=== PATIENT | male | born 1955 | race Caucasian/White ===

== ENCOUNTER 2017-03-23 09:55 | Emergency (ER) | payer MEDICAID, OTHER ==
[~2017-03-23] VITALS: Ht 154.9 cm; Wt 68.0 kg
[2017-03-23 09:56] VITALS: Ht 154.9 cm; Wt 68.0 kg
[2017-03-23 13:53] VITALS: BP 142/82; PULSE 78; RESP 18; TEMP 98.3
--- NOTE | 2017-03-23 14:07 | ERD ---
ER Documentation Chief Complaint Date/Time DATE: 03/23/17 TIME: 14:05 Chief Complaint ETOH homeless HPI This 61-year-old female presents with being found wandering the streets intoxicated. Is homeless and admits to drinking alcohol last night but denies drinking any alcohol today. He states that he does feel still drunk from last night. He denies any pain and does not think he needs to be in the emergency room currently. States that he has not had any recent trauma. ROS All systems reviewed and are negative except as per history of present illness. Medications Home Meds No Active Prescriptions or Reported Meds Allergies Allergies: Coded Allergies: Penicillins (Verified Allergy, Mild, 09/27/16) PMhx/Soc History of Surgery: Yes (testicular hernia repair) Anesthesia Reaction: No Hx Neurological Disorder: No Hx Respiratory Disorders: No Hx Cardiac Disorders: No Hx Psychiatric Problems: Yes (HX DEPRESSION, ETOH ABUSE) Hx Miscellaneous Medical Probl: Yes (chronic back pain, alcohol abuse, prostatitis dx'd 2 yrs ago- no f/u) Hx Alcohol Use: Yes (once per week) Hx Substance Use: No (DENIES) Hx Tobacco Use: No (DENIES) Smoking Status: Former smoker Physical Exam Vitals Vital Signs Date Time Temp Pulse Resp B/P Pulse Ox O2 Delivery O2 Flow Rate FiO2 03/23/17 13:53 98.3 78 18 142/82 98 03/23/17 12:35 98.1 81 18 146/84 98 03/23/17 09:56 98.1 114 20 152/88 98 Physical Exam Const: [] No distress, does appear intoxicated Head: Atraumatic Eyes: Normal Conjunctiva, EOMI, PRL ENT: Normal External Ears, Nose and Mouth. Neck: Full range of motion..~ No meningismus. Resp: Clear to auscultation bilaterally Cardio: Regular rate and rhythm, no murmurs Abd: Soft, non tender, non distended. Normal bowel sounds Skin: No petechiae or rashes Back: No midline or flank tenderness Ext: No cyanosis, or edema Neur: Awake and alert and oriented 3, mild slurred speech, cranial nerves II through XII intact, no cerebellar deficits. Psych: Normal Mood and Affect Procedures/MDM Intoxicated 61-year-old male. He was observed in the emergency room for 3-1/2 hours. Was able to eat and take p.o. After 3 hours a reexamined him he was clinically sober. Still had no pain or any signs of trauma. Going to discharge him with primary care follow-up. Spoke to him about alcohol cessation at the bedside for greater than 3 minutes. Departure Diagnosis: Primary Impression: Alcoholic intoxication Condition: Stable Patient Instructions: Alcohol Intoxication Referrals: [facility] YOU HAVE RECEIVED A MEDICAL SCREENING EXAM AND THE RESULTS INDICATE THAT YOU DO NOT HAVE A CONDITION THAT REQUIRES URGENT TREATMENT IN THE EMERGENCY DEPARTMENT. FURTHER EVALUATION AND TREATMENT OF YOUR CONDITION CAN WAIT UNTIL YOU ARE SEEN IN YOUR DOCTORS OFFICE WITHIN THE NEXT 1-2 DAYS. IT IS YOUR RESPONSIBILITY TO MAKE AN APPOINTMENT FOR FOLOW-UP CARE. IF YOU HAVE A PRIMARY DOCTOR --you should call your primary doctor and schedule an appointment IF YOU DO NOT HAVE A PRIMARY DOCTOR YOU CAN CALL OUR PHYSICIAN REFERRAL HOTLINE AT IF YOU CAN NOT AFFORD TO SEE A PHYSICIAN YOU CAN CHOSE FROM THE FOLLOWING [facility]IATRIC HOSPITAL CLINICS [facility] [address] [facility]. [facility] [address] [address] [facility] [facility] [address] [facility]. [facility] [address] [facility]. [facility]. [address] Additional Instructions: Llame al doctor MAANA y alverto brock CHIOMA PARA DENTRO DE 2-3 JEAN.Dgale a la secretaria que nosotros le instruimos hacer esta chioma.Avise o llame si lopez condicin se empeora antes de la chioma. Regresa aqui si peor o no mejor. NEGRA CHAMBERLAIN DO Mar 23, 2017 14:07
== END 2017-03-23 13:35 | disposition home or self-care (01) ==
LOC: E/R 09:55
DX: F10.120 Alcohol abuse with intoxication, uncomplicated (principal); Z87.891 Personal history of nicotine dependence
CPT/HCPCS: 99282

== ENCOUNTER 2017-04-06 10:41 | Emergency (ER) | payer OTHER ==
[~2017-04-06] VITALS: Ht 157.5 cm; Wt 59.5 kg
[2017-04-06 10:43] VITALS: Ht 157.5 cm; Wt 59.5 kg
--- NOTE | 2017-04-06 12:19 | RADRPT ---
PROCEDURE: Chest Radiograph. CLINICAL INDICATION: Chest pain TECHNIQUE: Single frontal chest radiograph. COMPARISON: None available FINDINGS: The cardiomediastinal silhouette is within normal limits. No infiltrate or effusion is seen. Th e bones are intact. IMPRESSION: 1. Unremarkable chest radiograph. RPTAT: AA .Joaquin Frank MD, MD Date Time Electronically viewed and signed by .Joaquin Frank MD, on 04/06/2017 12:19 .B/
[2017-04-06 12:37] LABS: ADD SCAN DIFF NO
[2017-04-06 12:38] LABS: BASOPHIL # 0.1 10^3/ul (0.0-0.1); BASOPHILS % 1.4 % (0.0-2.0); EOSINOPHILS # 0.1 10^3/ul (0.0-0.5); EOSINOPHILS % 0.9 % (0.0-7.0); HEMATOCRIT 30.3 % (42.0-52.0); HEMOGLOBIN 9.9 g/dl (14.0-18.0); LYMPHOCYTES # 2.1 10^3/ul (0.8-2.9); LYMPHOCYTES % 23.5 % (15.0-51.0); MEAN CORPUSCULAR HEMOGLOBIN 27.6 pg (29.0-33.0); MEAN CORPUSCULAR HGB CONC 32.7 g/dl (32.0-37.0); MEAN CORPUSCULAR VOLUME 84.4 fl (82.0-101.0); MEAN PLATELET VOLUME 8.8 fl (7.4-10.4); MONOCYTE # 0.3 10^3/ul (0.3-0.9); MONOCYTES % 3.8 % (0.0-11.0); NEUTROPHIL # 6.3 10^3/ul (1.6-7.5); NEUTROPHILS % 69.8 % (39.0-77.0); PLATELET COUNT 297 10^3/UL (140-415); RED BLOOD COUNT 3.59 10^6/ul (4.70-6.10); RED CELL DISTRIBUTION WIDTH 21.8 % (11.5-14.5)
[2017-04-06 13:05] LABS: INR 1.01; PARTIAL THROMBOPLASTIN TIME 30.5 Sec (25.0-35.0); PROTIME 13.3 Sec (12.2-14.2)
[2017-04-06 13:08] LABS: ANION GAP 21 (8-16); BLOOD UREA NITROGEN 11 mg/dl (7-20); CALCIUM 8.5 mg/dl (8.4-10.2); CARBON DIOXIDE 23 mmol/L (21-31); CHLORIDE 108 mmol/L (97-110); CREATININE 0.99 mg/dl (0.61-1.24); GLUCOSE 97 mg/dl (70-220); POTASSIUM 3.9 mmol/L (3.5-5.1); SODIUM 148 mmol/L (135-144)
[2017-04-06 13:15] LABS: TROPONIN-I < 0.012 ng/ml (0.00-0.12)
--- NOTE | 2017-04-06 13:16 | ERD ---
ER Documentation Chief Complaint Date/Time DATE: 04/06/17 TIME: 13:14 Chief Complaint depressed and fell from a 3 foot ladder yesterday, + etoh intoxication HPI This is a 61-year-old male presents to the emergency room for evaluation of chest pain. Patient did tell the nurse in triage she was depressed however he denies any depression or suicidal ideation has pain is in the center of his chest is been present for 1 months duration. It has been constant with no radiation. He came to the ER today for evaluation of his chest pain. The patient does state that he drank alcohol or not drinking alcohol since 2 AM this morning. ROS All systems reviewed and are negative except as per history of present illness. Medications Home Meds No Active Prescriptions or Reported Meds Allergies Allergies: Coded Allergies: Penicillins (Verified Allergy, Mild, 09/27/16) PMhx/Soc History of Surgery: Yes (testicular hernia repair) Anesthesia Reaction: No Hx Neurological Disorder: No Hx Respiratory Disorders: No Hx Cardiac Disorders: No Hx Psychiatric Problems: Yes (HX DEPRESSION, ETOH ABUSE) Hx Miscellaneous Medical Probl: Yes (chronic back pain, alcohol abuse, prostatitis dx'd 2 yrs ago- no f/u) Hx Alcohol Use: Yes (once per week) Hx Substance Use: No (DENIES) Hx Tobacco Use: No (DENIES) Smoking Status: Never smoker Physical Exam Vitals Vital Signs Date Time Temp Pulse Resp B/P Pulse Ox O2 Delivery O2 Flow Rate FiO2 04/06/17 12:09 0 04/06/17 10:43 98.0 106 20 165/96 98 Physical Exam INITIAL VITAL SIGNS: Reviewed by me GENERAL: The patient is well developed and appropriate for usual state of health in no apparent distress HEENT: Pupils equal, round, and reactive to light. EOMI. There is no scleral icterus. NECK: C-spine is soft and supple, there is no meningismus. There is no cervical lymphadenopathy. LUNGS: Clear to auscultation bilaterally. There are no rales, wheezes or rhonchi. HEART: Regular rate and rhythm, no murmurs, clicks, rubs or gallops. ABDOMEN: Soft, non-tender, non-distended. There are bowel sounds in all four quadrants. No rebound or guarding. EXTREMITIES: There is no peripheral cyanosis or edema. No focal swelling or erythema. NEUROLOGICAL: The patient moves all four extremities with 5/5 strength. Cranial nerves II - XII are intact. Normal gait. Alert and oriented SKIN: There is no apparent rash or petechiae. HEME/LYMPHATIC: There is no evidence of excessive bruising or lymphedema. PSYCHIATRIC: The patient does not appear anxious or depressed. Result Diagram: 04/06/17 1224 04/06/17 1224 Results 24 hrs Laboratory Tests Test 04/06/17 12:24 White Blood Count 9.010^3/ul Red Blood Count 3.5910^6/ul Hemoglobin 9.9g/dl Hematocrit 30.3% Mean Corpuscular Volume 84.4fl Mean Corpuscular Hemoglobin 27.6pg Mean Corpuscular Hemoglobin Concent 32.7g/dl Red Cell Distribution Width 21.8% Platelet Count 98337^3/UL Mean Platelet Volume 8.8fl Neutrophils % 69.8% Lymphocytes % 23.5% Monocytes % 3.8% Eosinophils % 0.9% Basophils % 1.4% Nucleated Red Blood Cells % 0.0/100WBC Neutrophils # 6.310^3/ul Lymphocytes # 2.110^3/ul Monocytes # 0.310^3/ul Eosinophils # 0.110^3/ul Basophils # 0.110^3/ul Nucleated Red Blood Cells # 0.010^3/ul Prothrombin Time 13.3Sec Prothrombin Time Ratio 1.0 INR International Normalized Ratio 1.01 Activated Partial Thromboplast Time 30.5Sec Sodium Level 148mmol/L Potassium Level 3.9mmol/L Chloride Level 108mmol/L Carbon Dioxide Level 23mmol/L Anion Gap 21 Blood Urea Nitrogen 11mg/dl Creatinine 0.99mg/dl Glucose Level 97mg/dl Calcium Level 8.5mg/dl Troponin I Pending Procedures/MDM EKG: Rate/Rhythm: [Normal Sinus Rhythm] QRS, ST, T-waves: [No changes consistent w/ acute ischemia] Impression: [No evidence of ischemia or arrhythmia] Chest X-ray 1V Interpreted by me: Soft Tissue: No acute abnormalities Bones: No acute abnormalities Mediastinum/Cardiac Silhouette/Lungs: [No acute abnormalities] This 61-year-old male presents to the ER for evaluation of chest pain. When I evaluated this patient he was hemodynamically stable. I did start a cardiac workup on this patient including a troponin which is negative. This patient's EKG is nonischemic and his chest x-ray is clear. He is not hypoxic, no respiratory distress, and he is hemodynamically stable. I advised this patient to follow-up with primary care physician as an outpatient to establish care and to set up a stress test. The patient did verbalize understanding. This patient will be discharged at this time. He is clinically sober. Departure Diagnosis: Primary Impression: Chest pain Additional Impressions: Normocytic anemia Alcohol abuse Condition: Stable KARLA GREEN DO Apr 06, 2017 13:16
[2017-04-06 13:37] VITALS: BP 154/76; PULSE 89; RESP 20
== END 2017-04-06 13:39 | disposition home or self-care (01) ==
LOC: E/R 10:41
DX: R07.9 Chest pain, unspecified (principal); D64.9 Anemia, unspecified; F10.10 Alcohol abuse, uncomplicated
CPT/HCPCS: 36415; 71010; 80048; 84484; 85025; 85610; 85730; Z7502; 93005

== ENCOUNTER 2017-04-19 10:15 | Emergency (ER) | payer OTHER ==
[~2017-04-19] VITALS: Ht 152.4 cm; Wt 60.0 kg
[2017-04-19 10:25] VITALS: Ht 152.4 cm; Wt 60.0 kg
[2017-04-19] MEDS ORDERED: FAMOTIDINE 20 MG TAB PO STA (10:35)
[2017-04-19] MEDS ORDERED: LIDOCAINE/MYLANTA 40 ML BTL PO STA (10:35)
[2017-04-19 11:02] LABS: ADD SCAN DIFF NO
[2017-04-19 11:08] LABS: BASOPHIL # 0.1 10^3/ul (0.0-0.1); BASOPHILS % 1.4 % (0.0-2.0); EOSINOPHILS # 0.1 10^3/ul (0.0-0.5); EOSINOPHILS % 1.6 % (0.0-7.0); HEMATOCRIT 29.3 % (42.0-52.0); HEMOGLOBIN 9.4 g/dl (14.0-18.0); LYMPHOCYTES # 2.3 10^3/ul (0.8-2.9); LYMPHOCYTES % 29.6 % (15.0-51.0); MEAN CORPUSCULAR HEMOGLOBIN 27.3 pg (29.0-33.0); MEAN CORPUSCULAR HGB CONC 32.1 g/dl (32.0-37.0); MEAN CORPUSCULAR VOLUME 85.2 fl (82.0-101.0); MONOCYTE # 0.5 10^3/ul (0.3-0.9); MONOCYTES % 5.9 % (0.0-11.0); NEUTROPHIL # 4.7 10^3/ul (1.6-7.5); NEUTROPHILS % 61.1 % (39.0-77.0); PLATELET COUNT 301 10^3/UL (140-415); RED BLOOD COUNT 3.44 10^6/ul (4.70-6.10); RED CELL DISTRIBUTION WIDTH 21.4 % (11.5-14.5); WHITE BLOOD COUNT 7.7 10^3/ul (4.8-10.8)
[2017-04-19 11:26] LABS: ANION GAP 15 (8-16); BLOOD UREA NITROGEN 12 mg/dl (7-20); CALCIUM 7.8 mg/dl (8.4-10.2); CARBON DIOXIDE 25 mmol/L (21-31); CHLORIDE 111 mmol/L (97-110); GLUCOSE 98 mg/dl (70-220); POTASSIUM 3.8 mmol/L (3.5-5.1); SODIUM 147 mmol/L (135-144)
[2017-04-19 11:38] LABS: TROPONIN-I < 0.012 ng/ml (0.00-0.12)
--- NOTE | 2017-04-19 11:38 | RADRPT ---
PROCEDURE: XR Chest. CLINICAL INDICATION: Chest pain TECHNIQUE: A single AP view of the chest was obtained. COMPARISON: Chest x-ray dated 04/06/2017 FINDINGS: No focal airspace opacification, pleural effusion or pneumothorax is seen. The cardiomediastinal si lhouette is within normal limits for size. The osseous structures demonstrate a healed left mid cla vicle fracture.. IMPRESSION: No radiographic evidence of acute cardiopulmonary disease. No significant interval change. RPTAT: HH .Kelsie Anderson MD, MD Date Time Electronically viewed and signed by .Kelsie Anderson MD, MD on 04/19/2017 11:38 .G/
[2017-04-19] MEDS ORDERED: FAMO-18 PO (13:22)
--- NOTE | 2017-04-19 13:26 | ERD ---
ER Documentation Chief Complaint Date/Time DATE: 04/19/17 TIME: 13:23 Chief Complaint Complains of chest pain smells of ETOH HPI 61-year-old male who presents the emergency room with burning chest pain. The patient regularly visits the emergency room for alcohol-related issues. He states that his last drink was earlier today or last night he is not sure. The patient describes a burning substernal chest discomfort from his epigastrium. He denies exertional symptoms he denies any pleuritic pain, no fevers chills or diaphoresis. He denies any hematemesis or melena. The patient was seen here fairly recently for similar symptoms. ROS All systems reviewed and are negative except as per history of present illness. Medications Home Meds Active Scripts Famotidine* (Pepcid*) 20 Mg Tablet, 20 MG PO BID for 4 Days, TAB Prov:JOSEPH TAFOYA MD 04/19/17 Allergies Allergies: Coded Allergies: Penicillins (Verified Allergy, Mild, 04/19/17) PMhx/Soc History of Surgery: Yes (testicular hernia repair) Anesthesia Reaction: No Hx Neurological Disorder: No Hx Respiratory Disorders: No Hx Cardiac Disorders: No Hx Psychiatric Problems: Yes (HX DEPRESSION, ETOH ABUSE) Hx Miscellaneous Medical Probl: Yes (chronic back pain, alcohol abuse, prostatitis dx'd 2 yrs ago- no f/u) Hx Alcohol Use: Yes (once per week) Hx Substance Use: No (DENIES) Hx Tobacco Use: No (DENIES) Smoking Status: Never smoker FmHx Family History: No coronary disease, No diabetes Physical Exam Vitals Vital Signs Date Time Temp Pulse Resp B/P Pulse Ox O2 Delivery O2 Flow Rate FiO2 04/19/17 12:28 72 16 141/89 96 Room Air 04/19/17 12:06 64 18 149/94 99 Room Air 04/19/17 10:25 98.3 89 20 180/111 94 Physical Exam General: Disheveled, smells of alcohol Head: Normocephalic, atraumatic. Eyes: Pupils equally reactive, EOM intact ENT: Moist mucous membranes Neck: Supple, no lymphadenopathy Respiratory: Lungs clear bilaterally, no distress Cardiovascular: RRR, no murmurs, rubs, or gallops Abdominal: Soft, non-tender, non-distended, no peritoneal signs, negative Aguero sign : Deferred MSK: No edema, no unilateral swelling, 5/5 strength Neurologic: Alert and oriented, moving all extremities, normal speech, no focal weakness, no cerebellar signs Skin: No rash Psych: Normal mood Result Diagram: 04/19/17 1040 04/19/17 1040 Results 24 hrs Laboratory Tests Test 04/19/17 10:40 04/19/17 12:20 White Blood Count 7.710^3/ul Red Blood Count 3.4410^6/ul Hemoglobin 9.4g/dl Hematocrit 29.3% Mean Corpuscular Volume 85.2fl Mean Corpuscular Hemoglobin 27.3pg Mean Corpuscular Hemoglobin Concent 32.1g/dl Red Cell Distribution Width 21.4% Platelet Count 07676^3/UL Mean Platelet Volume 9.0fl Neutrophils % 61.1% Lymphocytes % 29.6% Monocytes % 5.9% Eosinophils % 1.6% Basophils % 1.4% Nucleated Red Blood Cells % 0.0/100WBC Neutrophils # 4.710^3/ul Lymphocytes # 2.310^3/ul Monocytes # 0.510^3/ul Eosinophils # 0.110^3/ul Basophils # 0.110^3/ul Nucleated Red Blood Cells # 0.010^3/ul Sodium Level 147mmol/L Potassium Level 3.8mmol/L Chloride Level 111mmol/L Carbon Dioxide Level 25mmol/L Anion Gap 15 Blood Urea Nitrogen 12mg/dl Creatinine 0.90mg/dl Glucose Level 98mg/dl Calcium Level 7.8mg/dl Troponin I < 0.012ng/ml < 0.012ng/ml Current Medications Medications (Trade) Dose Ordered Sig/Myla Route PRN Reason Start Time Stop Time Status Last Admin Dose Admin Famotidine (Pepcid) 20 mg ONCE STAT PO 04/19/17 10:35 04/19/17 10:36 DC 04/19/17 10:41 Miscellaneous Medication (Gi Cocktail (2)) 40 ml ONCE STAT PO 04/19/17 10:35 04/19/17 10:36 DC 04/19/17 10:41 Procedures/MDM EKG, MONITORS, & DIAGNOSTIC IMAGING: EKG: I reviewed and interpreted a 12-lead EKG. Rhythm: Normal sinus rhythm Ectopy: None Intervals: No abnormalities ST segments: No elevations or depressions T waves: No contiguous inversions Repeat EKG: EKG: I reviewed and interpreted a 12-lead EKG. Rhythm: Normal sinus rhythm Ectopy: None Intervals: No abnormalities ST segments: No elevations or depressions T waves: No contiguous inversions Chest x-ray: I reviewed and interpreted a 1 view of the chest Mediastinum: No enlargement Cardiac silhouette: No cardiomegaly Airspace: Clear lung jensen bilaterally without evidence of pneumothorax Bones: No evidence of fracture LAB INTERPRETATION: Negative troponin 2 MEDICAL DECISION MAKING: The patient's history, physical exam and clinical presentation is most likely secondary to gastritis, reflux in the setting of alcohol abuse. Low clinical concern for cardiac disease however the patient is a 61-year-old gentleman with 1-2 risk factors. I believe EKG and serial troponins would be reasonable. Based on the patient's clinical exam and history and risk factors, I have a much lower clinical concern for pulmonary embolism, acute aortic dissection, pneumothorax, pneumonia, cardiac tamponade HEART Score: 2 MACE Rate: Less than 1.7% Shared Decision Making: We had a conversation regarding risk stratification, MACE rate, and the risks, benefits, alternatives of disposition planning options. Disposition planning: Given the patient's atypical presentation, better alternative diagnosis serial enzymes and EKGs will be most appropriate given his low missed adverse cardiac event rate. ER COURSE: The patient was given a GI cocktail with improved symptoms he is now sleeping and resting comfortably. The patient's laboratory testing, diagnostic imaging including serial EKGs, serial troponins are negative. For this reason given the patient's low risk profile, atypical presentation, low missed adverse cardiac event rate I believe outpatient follow-up would be most appropriate. I believe this is more consistent with likely alcoholic gastritis, PPI or H2 dilan would be most appropriate. Again, very low clinical concern for cardiac etiology. I kept the patient and/or family informed of laboratory and diagnostic imaging results throughout the emergency room course. DISPOSITION PLAN: We discussed follow up with the patient's primary care doctor within 24 to 48 hours as needed. We also discussed return to the emergency room for worsening symptoms or worsening condition. Outpatient referral: [None required] Discharge Medications: Pepcid Departure Diagnosis: Primary Impression: Atypical chest pain Additional Impressions: Alcohol abuse Alcoholic gastritis Chronicity: acute Gastritis bleeding: without bleeding Qualified Code: K29.20 - Acute alcoholic gastritis without hemorrhage Condition: Stable Patient Instructions: Chest Pain, Noncardiac , Alcohol Abuse Referrals: FORTUNATO GUPTA MD [facility] Usted se medina hecho un examen mdico de control que le indica que no est en brock condicin que requiera tratamiento urgente en el Departamento de Emergencia. Un estudio ms profundo y el tratamiento de lopez condicin pueden esperar sin ningn riesgo hasta que usted sea atendida/o en el consultorio de lopez mdico o brock cl jose. Es responsabilidad suya arreglar brock chioma para el seguimiento del myra. MANEJO DE CONDICIONES NO URGENTES EN EL FUTURO 1) Si usted tiene un mdico de atencin primaria: Usted debera llamar a lopez mdico de atencin primaria antes de venir al departamento de emergencia. Despus de las horas de consultorio, lopez doctor o lopez asociado/a est disponible por telfono. El mdico o enfermero de stella en el servicio telefnico puede asesorarle por joshua medio para atender el problema, o myra contrario se puede programar brock chioma. 2) Si usted no tiene un mdico de atencin primaria: Llame al mdico o clnica de referencia que aparece abajo lidia las horas de consultorio para hacer brock chioma para que le vean. CLINICAS: [facility] [phone] [address] [facility] [phone] [facility] [phone] [address] [facility]. [facility] [phone] [facility]. [facility] [phone] [address] [facility]. [phone] [address] . [facility] () Usted se medina hecho un examen mdico de control que le indica que no est en brock condicin que requiera tratamiento urgente en el Departamento de Emergencia. Un estudio ms profundo y el tratamiento de lopez condicin pueden esperar sin ningn riesgo hasta que usted sea atendida/o en el consultorio de lopez mdico o brock cl jose. Es responsabilidad suya arreglar brock chioma para el seguimiento del myra. MANEJO DE CONDICIONES NO URGENTES EN EL FUTURO 1) Si usted tiene un mdico de atencin primaria: Usted debera llamar a lopez mdico de atencin primaria antes de venir al departamento de emergencia. Despus de las horas de consultorio, lopez doctor o lopez asociado/a est disponible por telfono. El mdico o enfermero de stella en el servicio telefnico puede asesorarle por joshua medio para atender el problema, o myra contrario se puede programar brock chioma. 2) Si usted no tiene un mdico de atencin primaria: Llame al mdico o condado institucions de referencia que aparece abajo lidia las horas de consultorio para hacer brock chioma para que le vean. SI USTED NO PUEDE PAGAR PARA JUANITA UN MEDICO puede ir a: [facility] [address] [place] [address] [facility] [address] [place] [address] MERGED WITH [facility] [address] [place] [address] [facility]A [facility] [address] [place], [place] [id number] Additional Instructions: Llame al doctor nombrado abajo (Referral Sources) MAANA y alverto brock CHIOMA PARA DENTRO DE BROCK SEMANA. Dgale a la secretaria que nosotros le instruimos hacer esta chioma.Avise o llame si lopez condicin se empeora antes de la chioma. JOSEPH TAFOYA MD Apr 19, 2017 13:26
[2017-04-19 13:33] VITALS: BP 133/88; PULSE 98; RESP 21; TEMP 98.8
== END 2017-04-19 13:33 | disposition home or self-care (01) ==
LOC: E/R 10:15
DX: R07.89 Other chest pain (principal); F10.10 Alcohol abuse, uncomplicated; K29.20 Alcoholic gastritis without bleeding; R40.2142 Coma scale, eyes open, spontaneous, at arrival to emergency department; R40.2252 Coma scale, best verbal response, oriented, at arrival to emergency department; R40.2362 Coma scale, best motor response, obeys commands, at arrival to emergency department
CPT/HCPCS: 71010; 80048; 84484; 85025; 93005; Z7610; 36415

== ENCOUNTER 2017-04-30 09:02 | Emergency (ER) | payer OTHER ==
[~2017-04-30] VITALS: Ht 144.8 cm; Wt 68.2 kg
[~2017-04-30 09:02] MED LIST: FAMO-96 PO
[2017-04-30 09:06] VITALS: Ht 144.8 cm; Wt 68.2 kg
[2017-04-30 09:11] VITALS: BP 151/95; PULSE 86; RESP 18; TEMP 98.2
--- NOTE | 2017-04-30 14:00 | ERD ---
ER Documentation Chief Complaint Date/Time DATE: 04/30/17 TIME: 13:57 Chief Complaint BROUGHT IN VIA EMS FROM IN FRONT OF [facility] FOR DEPRESSION AND ETOH HPI 61-year-old male with a history of alcoholism and homelessness brought in by ambulance for alcohol intoxication and complaints of depression. The patient states he drank a lot last night because his friend yesterday. He is sad but he denies any suicidal or homicidal ideations. He has no other complaints today. History is limited due to his intoxication. ROS Limited secondary to alcohol intoxication Medications Home Meds Active Scripts Famotidine* (Pepcid*) 20 Mg Tablet, 20 MG PO BID for 4 Days, TAB Prov:JOSEPH TAFOYA MD 04/19/17 Allergies Allergies: Coded Allergies: Penicillins (Verified Allergy, Mild, 04/19/17) PMhx/Soc History of Surgery: Yes (testicular hernia repair) Anesthesia Reaction: No Hx Neurological Disorder: No Hx Respiratory Disorders: No Hx Cardiac Disorders: No Hx Psychiatric Problems: Yes (HX DEPRESSION, ETOH ABUSE) Hx Miscellaneous Medical Probl: Yes (chronic back pain, alcohol abuse, prostatitis dx'd 2 yrs ago- no f/u) Hx Alcohol Use: Yes Hx Substance Use: No (DENIES) Hx Tobacco Use: No (DENIES) Smoking Status: Former smoker FmHx Family History: No diabetes Physical Exam Vitals Vital Signs Date Time Temp Pulse Resp B/P Pulse Ox O2 Delivery O2 Flow Rate FiO2 04/30/17 09:11 98.2 86 18 151/95 95 Room Air 04/30/17 09:06 98.2 86 18 151/95 95 Physical Exam Const: Appears intoxicated, pleasant, slurred speech consistent with intoxication Head: Atraumatic Eyes: Normal Conjunctiva ENT: Normal External Ears, Nose and Mouth. Neck: Full range of motion..~ No meningismus. Resp: Clear to auscultation bilaterally Cardio: Regular rate and rhythm, no murmurs Abd: Soft, non tender, non distended. Normal bowel sounds Skin: No petechiae or rashes Back: No midline or flank tenderness Ext: No cyanosis, or edema Neur: Awake and alert and oriented 3, strength and sensations intact in all 4 extremities, no facial asymmetry Psych: Depressed and labile mood and Affect, then he occasionally smiles, no suicidal or homicidal ideations, no hallucinations Procedures/MDM Patient is presenting with alcohol intoxication and feelings of sadness. However he has no signs of danger to himself or others. No labs are ordered on the patient as there was no acute findings on exam that required this. Patient was allowed to sleep and sober up. Upon reevaluation, the patient had a steady gait and was tolerating fluids by mouth. He was ready to leave and denied any suicidality, he said he felt a lot better. Patient was discharged in stable condition Departure Diagnosis: Primary Impression: Alcohol intoxication Complication of substance-induced condition: uncomplicated Qualified Code: F10.120 - Alcohol intoxication, uncomplicated Condition: Stable Patient Instructions: Alcohol Intoxication Referrals: [facility] Usted se medina hecho un examen mdico de control que le indica que no est en brock condicin que requiera tratamiento urgente en el Departamento de Emergencia. Un estudio ms profundo y el tratamiento de lopez condicin pueden esperar sin ningn riesgo hasta que usted sea atendida/o en el consultorio de lopez mdico o brock cl jose. Es responsabilidad suya arreglar brock fred para el seguimiento del myra. MANEJO DE CONDICIONES NO URGENTES EN EL FUTURO 1) Si usted tiene un mdico de atencin primaria: Usted debera llamar a lopez mdico de atencin primaria antes de venir al departamento de emergencia. Despus de las horas de consultorio, lopez doctor o lopez asociado/a est disponible por telfono. El mdico o enfermero de stella en el servicio telefnico puede asesorarle por joshua medio para atender el problema, o myra contrario se puede programar brock fred. 2) Si usted no tiene un mdico de atencin primaria: Llame al mdico o clnica de referencia que aparece abajo lidia las horas de consultorio para hacer brock fred para que le vean. CLINICAS: [facility] [phone] [facility] [phone] [address] [facility] [phone] [address] [place] [id number] [phone] [facility] [phone] [address] [facility] [phone] MD Apr 30, 2017 14:00
== END 2017-04-30 11:25 | disposition home or self-care (01) ==
LOC: E/R 09:02
DX: F10.120 Alcohol abuse with intoxication, uncomplicated (principal); Z87.891 Personal history of nicotine dependence
CPT/HCPCS: 99283

== ENCOUNTER 2017-04-30 16:29 | Emergency (ER) | payer OTHER ==
[~2017-04-30] VITALS: Ht 157.5 cm; Wt 54.5 kg
[2017-04-30 16:30] VITALS: Ht 157.5 cm; Wt 54.5 kg
--- NOTE | 2017-04-30 18:53 | RADRPT ---
PROCEDURE: CT Brain without contrast. CLINICAL INDICATION: Altered mental status TECHNIQUE: A CT of the brain was performed on a multidetector CT scanner utilizing axial imaging f rom the skull base through the vertex without IV contrast. Multiplanar reformatted images were made . Images were reviewed on a PACS workstation. The CTDIvol is 45 mGy and the DLP is the 630 mGycm. COMPARISON: Head CT April 13, 2013 FINDINGS: There is no intracranial hemorrhage, mass effect, or midline shift. No extra-axial fluid collection is seen. There is moderate diffuse cerebral volume loss with sulcal and ventricular dilatation.. Th e density of the brain is normal, and the g[place]am white matter differentiation appears well-preserved. The visualized paranasal sinuses and osseous structures are grossly unremarkable. IMPRESSION: 1. No evidence of acute intracranial pathology. 2. Atrophy. .Senthil Reyes MD, Date Time Electronically viewed and signed by .Senthil Reyes MD, on 04/30/2017 18:53 .A/
[2017-04-30 19:13] VITALS: BP 120/68; PULSE 77; RESP 18
--- NOTE | 2017-04-30 19:29 | ERD ---
ER Documentation Chief Complaint Date/Time DATE: 04/30/17 TIME: 19:25 Chief Complaint ALCOHOL INTOXICATION HPI Patient is a 61-year-old male with alcohol abuse who presents altered. He was brought in by ambulance. He was found outside. He admits to drinking nasrin. He denies suicidal ideation. He was seen here earlier today for alcohol intoxication as well. Upon review of old medical records he has multiple visits to the ER for alcohol intoxication. ROS All systems reviewed and are negative except as per history of present illness. Medications Home Meds Active Scripts Famotidine* (Pepcid*) 20 Mg Tablet, 20 MG PO BID for 4 Days, TAB Prov:JOSEPH TAFOYA MD 04/19/17 Allergies Allergies: Coded Allergies: Penicillins (Verified Allergy, Mild, 04/19/17) PMhx/Soc History of Surgery: Yes (testicular hernia repair) Anesthesia Reaction: No Hx Neurological Disorder: No Hx Respiratory Disorders: No Hx Cardiac Disorders: No Hx Psychiatric Problems: Yes (HX DEPRESSION, ETOH ABUSE) Hx Miscellaneous Medical Probl: Yes (chronic back pain, alcohol abuse, prostatitis dx'd 2 yrs ago- no f/u) Hx Alcohol Use: Yes Hx Substance Use: No (DENIES) Hx Tobacco Use: No (DENIES) Smoking Status: Unknown if ever smoked FmHx Family History: No diabetes Physical Exam Vitals Vital Signs Date Time Temp Pulse Resp B/P Pulse Ox O2 Delivery O2 Flow Rate FiO2 04/30/17 19:13 77 18 120/68 99 Room Air 04/30/17 16:30 97.9 100 17 127/82 100 Physical Exam Const: Altered Head: Atraumatic Eyes: Normal Conjunctiva ENT: Normal External Ears, Nose and Mouth. Neck: Full range of motion..~ No meningismus. Resp: Clear to auscultation bilaterally Cardio: Regular rate and rhythm, no murmurs Abd: Soft, non tender, non distended. Normal bowel sounds Skin: No petechiae or rashes Back: No midline or flank tenderness Ext: No cyanosis, or edema Neur: Awake but was slurred speech and appears intoxicated Results 24 hrs Laboratory Tests Test 04/30/17 17:17 Bedside Glucose 98mg/dL Procedures/MDM CT brain negative per radiology. Accu-Chek is normal. Patient is a 61-year-old male presents with acute alcohol intoxication. CT head was negative and I doubt intracranial hemorrhage or brain mass. Accu-Chek was normal and I doubt hypo-or hyperglycemia. The patient was in the emergency department for a few hours and is now clinically sober and ambulating without difficulty. He wants to leave. The patient will be discharged in good condition and can return for any worsening symptoms. Departure Diagnosis: Primary Impression: Alcoholic intoxication Complication of substance-induced condition: uncomplicated Qualified Code: F10.120 - Alcoholic intoxication, uncomplicated Condition: Fair Patient Instructions: Alcohol Intoxication Referrals: [facility] Usted se medina hecho un examen mdico de control que le indica que no est en borck condicin que requiera tratamiento urgente en el Departamento de Emergencia. Un estudio ms profundo y el tratamiento de lopez condicin pueden esperar sin ningn riesgo hasta que usted sea atendida/o en el consultorio de lopez mdico o brock cl jose. Es responsabilidad suya arreglar brock chioma para el seguimiento del myra. MANEJO DE CONDICIONES NO URGENTES EN EL FUTURO 1) Si usted tiene un mdico de atencin primaria: Usted debera llamar a lopez mdico de atencin primaria antes de venir al departamento de emergencia. Despus de las horas de consultorio, lopez doctor o lopez asociado/a est disponible por telfono. El mdico o enfermero de stella en el servicio telefnico puede asesorarle por joshua medio para atender el problema, o myra contrario se puede programar brock chioma. 2) Si usted no tiene un mdico de atencin primaria: Llame al mdico o clnica de referencia que aparece abajo lidia las horas de consultorio para hacer brock chioma para que le vean. CLINICAS: [facility] [phone] [facility] [phone] [facility] [phone] [facility] [phone] [place] [phone] [facility]. [phone] [address] Additional Instructions: Llame al doctor MAANA y alverto brock CHIOMA PARA DENTRO DE 1-2 JEAN.Dgale a la secretaria que nosotros le instruimos hacer esta chioma.Avise o llame si lopez condicin se empeora antes de la chioma. Regresa aqui si peor o no mejor. SONIA DIA MD Apr 30, 2017 19:28
== END 2017-04-30 19:15 | disposition home or self-care (01) ==
LOC: E/R 16:29
DX: F10.120 Alcohol abuse with intoxication, uncomplicated (principal); R41.82 Altered mental status, unspecified
CPT/HCPCS: 70450; 82962; Z7502

== ENCOUNTER 2017-05-16 09:35 | Emergency (ER) | payer OTHER ==
[~2017-05-16] VITALS: Ht 157.5 cm; Wt 60.0 kg
[2017-05-16 09:40] VITALS: Ht 157.5 cm; Wt 60.0 kg
--- NOTE | 2017-05-16 09:55 | ERD ---
ER Documentation Chief Complaint Date/Time DATE: 05/16/17 TIME: 09:54 Chief Complaint BIB RA 81 FOR EVAL OF CP. HPI Patient is a 61-year-old male with alcohol abuse who presents with chest pain. The patient was brought in by ambulance. He said that he felt depressed initially but that he does not feel depressed anymore. The patient said that he had chest pain but he has no chest pain now. He drank alcohol last night. Upon review of old medical records the patient has multiple visits to the ER for various complaints. Review of the emergency department information exchange shows visits to 2 separate emergency departments. He does not currently have a primary doctor. ROS All systems reviewed and are negative except as per history of present illness. Medications Home Meds Active Scripts Famotidine* (Pepcid*) 20 Mg Tablet, 20 MG PO BID for 4 Days, TAB Prov:JOSEPH TAFOYA MD 04/19/17 Allergies Allergies: Coded Allergies: Penicillins (Verified Allergy, Mild, 04/19/17) PMhx/Soc History of Surgery: Yes (testicular hernia repair) Anesthesia Reaction: No Hx Neurological Disorder: No Hx Respiratory Disorders: No Hx Cardiac Disorders: No Hx Psychiatric Problems: Yes (HX DEPRESSION, ETOH ABUSE) Hx Miscellaneous Medical Probl: Yes (chronic back pain, alcohol abuse, prostatitis dx'd 2 yrs ago- no f/u) Hx Alcohol Use: Yes Hx Substance Use: No (DENIES) Hx Tobacco Use: No (DENIES) FmHx Family History: diabetes Physical Exam Vitals Vital Signs Date Time Temp Pulse Resp B/P Pulse Ox O2 Delivery O2 Flow Rate FiO2 05/16/17 09:40 97.9 97 19 146/95 100 Physical Exam Const: No acute distress Head: Atraumatic Eyes: Normal Conjunctiva ENT: Normal External Ears, Nose and Mouth. Neck: Full range of motion..~ No meningismus. Resp: Clear to auscultation bilaterally Cardio: Regular rate and rhythm, no murmurs Abd: Soft, non tender, non distended. Normal bowel sounds Skin: No petechiae or rashes Back: No midline or flank tenderness Ext: No cyanosis, or edema Neur: Awake and alert Psych: Normal Mood and Affect Procedures/MDM EKG read by me: Rate/Rhythm: Regular rate and rhythm at a rate of 84 Intervals: Normal Impression: No evidence of ischemia or arrhythmia Patient is a 61-year-old male with alcohol abuse who presents with chest pain. He no longer has chest pain and his EKG is normal. At this point I doubt true acute coronary syndrome, pneumonia, pneumothorax, pulmonary embolism, or aortic dissection. I believe outpatient management is appropriate. The patient is well-known to our emergency department for various complaints including chest pain. I believe outpatient management is appropriate but the patient should follow-up with the local clinics within 24-48 hours. Departure Diagnosis: Primary Impression: Chest pain Chest pain type: unspecified Qualified Code: R07.9 - Chest pain, unspecified type Additional Impression: Alcohol intoxication Complication of substance-induced condition: uncomplicated Qualified Code: F10.120 - Alcohol intoxication, uncomplicated Condition: Fair Patient Instructions: Chest Pain, Uncertain Cause Referrals: [facility] Usted se medina hecho un examen mdico de control que le indica que no est en brock condicin que requiera tratamiento urgente en el Departamento de Emergencia. Un estudio ms profundo y el tratamiento de lopez condicin pueden esperar sin ningn riesgo hasta que usted sea atendida/o en el consultorio de lopez mdico o brock cl jose. Es responsabilidad suya arreglar brock chioma para el seguimiento del myra. MANEJO DE CONDICIONES NO URGENTES EN EL FUTURO 1) Si usted tiene un mdico de atencin primaria: Usted debera llamar a lopez mdico de atencin primaria antes de venir al departamento de emergencia. Despus de las horas de consultorio, lopez doctor o lopez asociado/a est disponible por telfono. El mdico o enfermero de stella en el servicio telefnico puede asesorarle por joshua medio para atender el problema, o myra contrario se puede programar brock chioma. 2) Si usted no tiene un mdico de atencin primaria: Llame al mdico o clnica de referencia que aparece abajo lidia las horas de consultorio para hacer brock chioma para que le vean. CLINICAS: [facility] [phone] [facility] [phone] [facility] [phone] [place] [phone] [place] [address] [phone] [place] [phone] [address] Additional Instructions: Llame al doctor MAANA y alverto brock CHIOMA PARA DENTRO DE 1-2 JEAN.Dgale a la secretaria que nosotros le instruimos hacer esta chioma.Avise o llame si lopez condicin se empeora antes de la chioma. Regresa aqui si peor o no mejor. SONIA DIA MD May 16, 2017 09:55
[2017-05-16 10:41] VITALS: BP 152/109; PULSE 88; RESP 22
== END 2017-05-16 10:25 | disposition home or self-care (01) ==
LOC: E/R 09:35
DX: R07.9 Chest pain, unspecified (principal); F10.120 Alcohol abuse with intoxication, uncomplicated
CPT/HCPCS: 93005; Z7502

== ENCOUNTER 2017-06-04 21:14 | Emergency (ER) | payer OTHER ==
[~2017-06-04] VITALS: Ht 165.1 cm; Wt 75.0 kg
[2017-06-04 21:20] VITALS: Ht 165.1 cm; Wt 75.0 kg
--- NOTE | 2017-06-04 21:43 | ERD ---
ER Documentation Chief Complaint Date/Time DATE: 06/04/17 TIME: 21:42 Chief Complaint bib ambulance for etoh intoxication HPI 61-year-old male brought in by EMS for EtOH intoxication. Patient ambulatory here in the emergency department. Admits to drinking. No evidence of trauma. Well-appearing. ROS All systems reviewed and are negative except as per history of present illness. Medications Home Meds Active Scripts Famotidine* (Pepcid*) 20 Mg Tablet, 20 MG PO BID for 4 Days, TAB Prov:JOSEPH TAFOYA MD 04/19/17 Allergies Allergies: Coded Allergies: Penicillins (Verified Allergy, Mild, 04/19/17) PMhx/Soc History of Surgery: Yes (testicular hernia repair) Anesthesia Reaction: No Hx Neurological Disorder: No Hx Respiratory Disorders: No Hx Cardiac Disorders: No Hx Psychiatric Problems: Yes (DEPRESSION, ETOH ABUSE) Hx Miscellaneous Medical Probl: Yes (chronic back pain, prostatitis dx'd 2 yrs ago- no f/u) Hx Alcohol Use: Yes (DAILY) Hx Substance Use: No (DENIES) Hx Tobacco Use: No (DENIES) Physical Exam Vitals Vital Signs Date Time Temp Pulse Resp B/P Pulse Ox O2 Delivery O2 Flow Rate FiO2 06/04/17 21:20 97.8 86 20 134/68 98 06/04/17 21:20 98.9 91 20 135/81 96 Physical Exam Const: [] Head: Atraumatic Eyes: Normal Conjunctiva ENT: Normal External Ears, Nose and Mouth. Neck: Full range of motion..~ No meningismus. Resp: Clear to auscultation bilaterally Cardio: Regular rate and rhythm, no murmurs Abd: Soft, non tender, non distended. Normal bowel sounds Skin: No petechiae or rashes Back: No midline or flank tenderness Ext: No cyanosis, or edema Neur: Awake and alert Psych: Normal Mood and Affect Procedures/MDM Medical decision makin-year-old male with acute alcohol intoxication. At this point clinically stable for outpatient management. Clinically sober. Non- ataxic gait. Ability to negotiate the community. Alert and oriented 4. Patient advised to stop drinking Departure Diagnosis: Primary Impression: Alcoholic intoxication Complication of substance-induced condition: uncomplicated Qualified Code: F10.120 - Alcoholic intoxication, uncomplicated Condition: Stable MARK TOMAS Jun 04, 2017 21:43
== END 2017-06-04 22:00 | disposition home or self-care (01) ==
LOC: E/R 21:14
DX: F10.120 Alcohol abuse with intoxication, uncomplicated (principal)
CPT/HCPCS: 99283

== ENCOUNTER 2017-07-26 16:10 | Emergency (ER) | payer OTHER ==
[~2017-07-26] VITALS: Wt 61.0 kg
[2017-07-26 16:54] LABS: BASOPHIL # 0.1 10^3/ul (0.0-0.1); BASOPHILS % 1.7 % (0.0-2.0); EOSINOPHILS # 0.1 10^3/ul (0.0-0.5); EOSINOPHILS % 0.8 % (0.0-7.0); HEMATOCRIT 28.3 % (42.0-52.0); HEMOGLOBIN 8.9 g/dl (14.0-18.0); LYMPHOCYTES # 2.3 10^3/ul (0.8-2.9); LYMPHOCYTES % 38.7 % (15.0-51.0); MEAN CORPUSCULAR HEMOGLOBIN 26.1 pg (29.0-33.0); MEAN CORPUSCULAR HGB CONC 31.4 g/dl (32.0-37.0); MEAN PLATELET VOLUME 8.4 fl (7.4-10.4); MONOCYTE # 0.4 10^3/ul (0.3-0.9); MONOCYTES % 7.3 % (0.0-11.0); NEUTROPHIL # 3.1 10^3/ul (1.6-7.5); NEUTROPHILS % 51.2 % (39.0-77.0); PLATELET COUNT 280 10^3/UL (140-415); RED BLOOD COUNT 3.41 10^6/ul (4.70-6.10); RED CELL DISTRIBUTION WIDTH 21.7 % (11.5-14.5)
[2017-07-26 17:11] LABS: ALBUMIN 3.8 g/dl (3.3-4.9); ALBUMIN/GLOBULIN RATIO 0.86; CALCIUM 7.9 mg/dl (8.4-10.2); CREATININE 0.98 mg/dl (0.61-1.24); POTASSIUM 3.6 mmol/L (3.5-5.1); TOTAL PROTEIN 8.2 g/dl (6.1-8.1)
[2017-07-26 18:59] LABS: ADD UMIC NO; UR ASCORBIC ACID NEGATIVE (NEGATIVE); UR BILIRUBIN (Dip) NEGATIVE (NEGATIVE); UR BLOOD (Dip) NEGATIVE (NEGATIVE); UR CLARITY CLEAR (CLEAR); UR COLOR YELLOW (YELLOW); UR GLUCOSE (Dip) NEGATIVE (NEGATIVE); UR KETONES (Dip) NEGATIVE (NEGATIVE); UR LEUKOCYTE ESTERASE (Dip) NEGATIVE Leu/ul (NEGATIVE); UR NITRITE (Dip) NEGATIVE (NEGATIVE); UR SPECIFIC GRAVITY (Dip) 1.013 (1.003-1.030); UR TOTAL PROTEIN (Dip) NEGATIVE (NEGATIVE); UR UROBILINOGEN (Dip) NEGATIVE (NEGATIVE)
[2017-07-26 19:12] LABS: BARBITURATES Negative (NEGATIVE); BENZODIAZEPINES Negative (NEGATIVE); CANNABINOIDS Negative (NEGATIVE); COCAINE Negative (NEGATIVE); OPIATES Negative (NEGATIVE)
--- NOTE | 2017-07-26 21:15 | PSY ---
Date/Time of Note Date/Time of Note DATE: 07/26/17 TIME: 21:11 Psychiatric Subjective Eval Consent Pt consented to telemedicine: Yes Subjective Evaluation Patient location: emergency Chief Complaint: FEELING DEPRESSED SINCE LAST NIGHT DENIES SI OR HI NO TRAUMA. Reason for consult: ALCOHOL INTOXICATION History of present illness Pt reports "I was just joking." He states he went out drinking last night. He combined alcohol and beer and this made him ill. He reports a long history of alcohol use but was sober for one year while "taking pills" to help. Pt reports he is okay now. He denies depressed mood. He denies suicidal and homicidal ideation. He denies psychosis. He is motivated to leave the ER and return home. He states he lives with two friends and is eager to return home. Past psychiatric history Denies. Has had rehab treatment for alcohol Hospitalization: no Family History Denies Medical history Problems Medical Problems: (1) Alcohol abuse Status: Acute (2) Alcohol abuse Status: Acute (3) Alcohol intoxication Status: Acute (4) Alcoholic gastritis Status: Acute (5) Alcoholic intoxication Status: Acute (6) Alcoholic intoxication Status: Acute (7) Alcoholic intoxication Status: Acute (8) Alcoholic intoxication Status: Acute (9) Atypical chest pain Status: Acute (10) Chest pain Status: Acute (11) Chest pain Status: Acute (12) Encounter for removal of sutures Status: Acute (13) Encounter for removal of sutures Status: Acute (14) Knee pain Status: Acute (15) Normocytic anemia Status: Acute (16) Patient left after triage Status: Acute (17) Patient left without being seen Status: Acute (18) Proc/trtmt not crd out d/t pt lv bef [facility] Status: Acute (19) Subconjunctival hemorrhage Status: Acute Allergies: Coded Allergies: Penicillins (Verified Allergy, Mild, 07/26/17) Substance Abuse Substance abuse history: Yes Prior substance abuse treatmen: Yes Social History Marital status: single Level of education: HS DPA/Conservatorship: No 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 Psychiatric Objective Eval Mental Status Examination: Appearance: Groomed Eye Contact: Good Psychomotor Activity: Normal Behavior: Friendly, Guarded Speech: Clear AFFECT: Appropriate Mood: Appropriate/Full Though Process: Linear Thought Content: Normal Suicidal: No Homicidal: No On 72 hour hold: No Orientation: x4 Cognition: Alert Insight: Mild Judgement: Mild Laboratory Results Laboratory Tests Test 07/26/17 16:42 07/26/17 18:37 White Blood Count 6.010^3/ul Red Blood Count 3.4110^6/ul Hemoglobin 8.9g/dl Hematocrit 28.3% Mean Corpuscular Volume 83.0fl Mean Corpuscular Hemoglobin 26.1pg Mean Corpuscular Hemoglobin Concent 31.4g/dl Red Cell Distribution Width 21.7% Platelet Count 44646^3/UL Mean Platelet Volume 8.4fl Neutrophils % 51.2% Lymphocytes % 38.7% Monocytes % 7.3% Eosinophils % 0.8% Basophils % 1.7% Nucleated Red Blood Cells % 0.0/100WBC Neutrophils # 3.110^3/ul Lymphocytes # 2.310^3/ul Monocytes # 0.410^3/ul Eosinophils # 0.110^3/ul Basophils # 0.110^3/ul Nucleated Red Blood Cells # 0.010^3/ul Sodium Level 147mmol/L Potassium Level 3.6mmol/L Chloride Level 110mmol/L Carbon Dioxide Level 24mmol/L Anion Gap 17 Blood Urea Nitrogen 9mg/dl Creatinine 0.98mg/dl Glucose Level 112mg/dl Calcium Level 7.9mg/dl Total Bilirubin 0.0mg/dl Direct Bilirubin 0.00mg/dl Indirect Bilirubin 0.0mg/dl Aspartate Amino Transf (AST/SGOT) 54IU/L Alanine Aminotransferase (ALT/SGPT) 43IU/L Alkaline Phosphatase 76IU/L Total Protein 8.2g/dl Albumin 3.8g/dl Globulin 4.40g/dl Albumin/Globulin Ratio 0.86 Ethyl Alcohol Level 462.0mg/dl Urine Color YELLOW Urine Clarity CLEAR Urine pH 5.0 Urine Specific [place] 1.013 Urine Ketones NEGATIVEmg/dL Urine Nitrite NEGATIVEmg/dL Urine Bilirubin NEGATIVEmg/dL Urine Urobilinogen NEGATIVEmg/dL Urine Leukocyte Esterase NEGATIVELeu/ul Urine Hemoglobin NEGATIVEmg/dL Urine Glucose NEGATIVEmg/dL Urine Total Protein NEGATIVEmg/dl Urine Opiates Screen Negative Urine Barbiturates Negative Urine Amphetamines Screen Negative Urine Benzodiazepines Screen Negative Urine Cocaine Screen Negative Urine Cannabinoids Negative Assessment and Plan Assessment/Diagnosis [place] I: Alcohol Use Disorder Recommendation/Plan Medication Management None recommended Psychotherapy Brief supportive work. Pt. Caregiver/Family Education NA Follow-up/Disposition Recommend patient be given resources for AA and other rehab programs in the area. He reports he is interested but appears more eager to leave the ER. I do not think he meets the criteria for an involuntary hold at this time. TAYLOR MARTELL Jul 26, 2017 21:15
--- NOTE | 2017-07-26 21:22 | ERD ---
ER Documentation Chief Complaint Date/Time DATE: 07/26/17 TIME: 21:22 Chief Complaint FEELING DEPRESSED SINCE LAST NIGHT DENIES SI OR HI NO TRAUMA. HPI 61-year-old male with a known history of alcoholism and depression presenting intoxicated complaining of depression. He denies any specific suicidal thoughts or plan. He states that he is just very sad. He states he drank a lot of alcohol today. He has no physical complaints. ROS All systems reviewed and are negative except as per history of present illness. Medications Home Meds Discontinued Scripts Famotidine* (Pepcid*) 20 Mg Tablet, 20 MG PO BID for 4 Days, TAB Prov:JOSEPH TAFOYA MD 04/19/17 Allergies Allergies: Coded Allergies: Penicillins (Verified Allergy, Mild, 07/26/17) PMhx/Soc History of Surgery: Yes (testicular hernia repair) Anesthesia Reaction: No Hx Neurological Disorder: No Hx Respiratory Disorders: No Hx Cardiac Disorders: No Hx Psychiatric Problems: Yes (DEPRESSION, ETOH ABUSE) Hx Miscellaneous Medical Probl: Yes (chronic back pain, prostatitis dx'd 2 yrs ago- no f/u) Hx Alcohol Use: Yes (DAILY) Hx Substance Use: No (DENIES) Hx Tobacco Use: No (DENIES) Smoking Status: Never smoker FmHx Family History: No diabetes Physical Exam Vitals Vital Signs Date Time Temp Pulse Resp B/P Pulse Ox O2 Delivery O2 Flow Rate FiO2 07/26/17 21:29 193/108 07/26/17 21:25 97.9 91 16 185/105 97 Room Air 07/26/17 16:19 98.5 88 20 135/78 98 Physical Exam Const: No apparent distress, nontoxic Head: Atraumatic Eyes: Normal Conjunctiva ENT: Normal External Ears, Nose and Mouth. Poor dentition Neck: Full range of motion..~ No meningismus. Resp: Clear to auscultation bilaterally Cardio: Regular rate and rhythm, no murmurs Abd: Soft, non tender, non distended. Normal bowel sounds Skin: No petechiae or rashes Back: No midline or flank tenderness Ext: No cyanosis, or edema Neur: Awake and alert, oriented 3, normal speech, moving all extremities, normal steady gait Psych: Normal Mood and Affect, no suicidal or homicidal ideation, no hallucinations Result Diagram: 07/26/17 1642 07/26/17 1642 Results 24 hrs Laboratory Tests Test 07/26/17 16:42 07/26/17 18:37 White Blood Count 6.010^3/ul Red Blood Count 3.4110^6/ul Hemoglobin 8.9g/dl Hematocrit 28.3% Mean Corpuscular Volume 83.0fl Mean Corpuscular Hemoglobin 26.1pg Mean Corpuscular Hemoglobin Concent 31.4g/dl Red Cell Distribution Width 21.7% Platelet Count 84080^3/UL Mean Platelet Volume 8.4fl Neutrophils % 51.2% Lymphocytes % 38.7% Monocytes % 7.3% Eosinophils % 0.8% Basophils % 1.7% Nucleated Red Blood Cells % 0.0/100WBC Neutrophils # 3.110^3/ul Lymphocytes # 2.310^3/ul Monocytes # 0.410^3/ul Eosinophils # 0.110^3/ul Basophils # 0.110^3/ul Nucleated Red Blood Cells # 0.010^3/ul Sodium Level 147mmol/L Potassium Level 3.6mmol/L Chloride Level 110mmol/L Carbon Dioxide Level 24mmol/L Anion Gap 17 Blood Urea Nitrogen 9mg/dl Creatinine 0.98mg/dl Glucose Level 112mg/dl Calcium Level 7.9mg/dl Total Bilirubin 0.0mg/dl Direct Bilirubin 0.00mg/dl Indirect Bilirubin 0.0mg/dl Aspartate Amino Transf (AST/SGOT) 54IU/L Alanine Aminotransferase (ALT/SGPT) 43IU/L Alkaline Phosphatase 76IU/L Total Protein 8.2g/dl Albumin 3.8g/dl Globulin 4.40g/dl Albumin/Globulin Ratio 0.86 Ethyl Alcohol Level 462.0mg/dl Urine Color YELLOW Urine Clarity CLEAR Urine pH 5.0 Urine Specific [place] 1.013 Urine Ketones NEGATIVEmg/dL Urine Nitrite NEGATIVEmg/dL Urine Bilirubin NEGATIVEmg/dL Urine Urobilinogen NEGATIVEmg/dL Urine Leukocyte Esterase NEGATIVELeu/ul Urine Hemoglobin NEGATIVEmg/dL Urine Glucose NEGATIVEmg/dL Urine Total Protein NEGATIVEmg/dl Urine Opiates Screen Negative Urine Barbiturates Negative Urine Amphetamines Screen Negative Urine Benzodiazepines Screen Negative Urine Cocaine Screen Negative Urine Cannabinoids Negative Procedures/MDM Patient is presenting with depression and alcohol intoxication. Vitals are stable. He was medically cleared by me. His alcohol level was noted to be very high. Otherwise his labs did not show any significant concerning abnormalities. He may be somewhat dehydrated. Fluids were given by mouth. He spoke with Dr. march, the tele-psychiatrist on-call, who does not think the patient needs admission to an inpatient psychiatric unit. He did recommend I give the patient resources for AA, which I did. Patient was encouraged to return for any worsening symptoms or thoughts. Departure Diagnosis: Primary Impression: Alcohol intoxication Complication of substance-induced condition: uncomplicated Qualified Code: F10.920 - Alcoholic intoxication without complication Additional Impression: Depressed Depression Type: unspecified Qualified Code: F32.9 - Depression, unspecified depression type Condition: Stable EDNA CABAN MD Jul 26, 2017 21:22
[2017-07-26 21:25] VITALS: PULSE 91; RESP 16; TEMP 97.9
[2017-07-26 21:31] VITALS: BP 166/97
== END 2017-07-26 21:35 | disposition home or self-care (01) ==
LOC: E/R 16:10
DX: F10.920 Alcohol use, unspecified with intoxication, uncomplicated (principal); R40.2252 Coma scale, best verbal response, oriented, at arrival to emergency department; R40.2142 Coma scale, eyes open, spontaneous, at arrival to emergency department; R40.2362 Coma scale, best motor response, obeys commands, at arrival to emergency department
CPT/HCPCS: 36415; 80053; 80306; 80307; 81003; 85025; Z7502; 99283

== ENCOUNTER 2017-09-27 09:46 | Emergency (ER) | payer OTHER ==
[~2017-09-27] VITALS: Wt 68.0 kg
--- NOTE | 2017-09-27 10:09 | ERD ---
ER Documentation Chief Complaint Chief Complaint PT BIB AMBULANCE C/O BILAT LEG PAIN, ALSO ETOH INTAKE HPI This is a 62-year-old male well-known to this emergency department who states that he has been drinking too much this morning. He was found near a bank. He states that he had been drinking. He is stating that he has knee pain and having difficulty walking but he was observed by EMS walking around without difficulty. He then states "never mind I do not have any pain". The patient denies any chest pain falls or injuries. He admits to drinking. He denies suicidal or homicidal ideation. ROS All systems reviewed and are negative except as per history of present illness. Medications Home Meds No Active Prescriptions or Reported Meds Allergies Allergies: Coded Allergies: Penicillins (Verified Allergy, Mild, 07/26/17) PMhx/Soc History of Surgery: Yes (testicular hernia repair) Anesthesia Reaction: No Hx Neurological Disorder: No Hx Respiratory Disorders: No Hx Cardiac Disorders: No Hx Psychiatric Problems: Yes (DEPRESSION, ETOH ABUSE) Hx Miscellaneous Medical Probl: Yes (chronic back pain, prostatitis dx'd 2 yrs ago- no f/u) Hx Alcohol Use: Yes (DAILY) Hx Substance Use: No (DENIES) Hx Tobacco Use: No (DENIES) FmHx Family History: No diabetes Physical Exam Vitals Vital Signs Date Time Temp Pulse Resp B/P Pulse Ox O2 Delivery O2 Flow Rate FiO2 09/27/17 09:56 98.1 98 17 146/97 96 Physical Exam General: Well developed, well nourished, no acute distress, smells of alcohol, conversive Head: Normocephalic, atraumatic. Eyes: Pupils equally reactive, EOM intact ENT: Moist mucous membranes Neck: Supple, no lymphadenopathy Respiratory: Lungs clear bilaterally, no distress Cardiovascular: RRR, no murmurs, rubs, or gallops Abdominal: Soft, non-tender, non-distended, no peritoneal signs : Deferred MSK: Bilateral knees without focal tenderness, full active and passive range of motion without ligamentous instability. Perfused distally. No edema, no unilateral swelling, 5/5 strength Neurologic: Slightly intoxicated, alert and oriented, moving all extremities, normal speech, no focal weakness, no cerebellar signs Skin: No rash, no evidence of trauma Psych: Normal mood Procedures/MDM MEDICAL DECISION MAKING: The patient's presentation is consistent with acute alcohol intoxication. I do not believe the patient is actually having knee pain as he was visualized walking around without difficulty. He again states "never minded and not have knee pain ". The patient is likely malingering. I have a much lower clinical concern for clinically significant traumatic brain injury, meningitis, significant electrolyte disturbance The patient's workup will include observation for sobriety. The patient's presentation is most consistent with acute alcohol intoxication leading to acute encephalopathy. The patient is protecting their airway. The patient has no signs or symptoms concerning for impending respiratory failure and does not require intubation at this time. The patient will require observation in the emergency room to allow for metabolization. Once the patient is able to ambulate on their own accord, navigate the community the patient can be safely discharged from the emergency room. ER COURSE: The patient continues to be resting comfortably. Once he can ambulate he will be discharged. I kept the patient and/or family informed of laboratory and diagnostic imaging results throughout the emergency room course. DISPOSITION PLAN: Pending reevaluation at discharge. Departure Diagnosis: Primary Impression: Alcohol intoxication Complication of substance-induced condition: uncomplicated Qualified Code: F10.920 - Alcoholic intoxication without complication Additional Impression: Malingering Condition: Stable Patient Instructions: Alcohol Abuse Referrals: CODIE RIDDLE (PCP) Additional Instructions: Call your primary care doctor TOMORROW for an appointment during the next 1 WEEK.Tell the clinical secretary that you were referred from this facility.See the doctor sooner or return here if your condition worsens before your appointment time. JOSEPH TAFOYA MD Sep 27, 2017 10:09
== END 2017-09-27 12:36 | disposition left against medical advice (07) ==
LOC: E/R 09:46
DX: F10.120 Alcohol abuse with intoxication, uncomplicated (principal); R40.2252 Coma scale, best verbal response, oriented, at arrival to emergency department; R40.2142 Coma scale, eyes open, spontaneous, at arrival to emergency department; R40.2362 Coma scale, best motor response, obeys commands, at arrival to emergency department; Z76.5 Malingerer [conscious simulation]
CPT/HCPCS: 99282

== ENCOUNTER 2018-02-24 17:48 | Emergency (ER) | END 2018-02-24 18:17 | disposition left against medical advice (07) ==

== ENCOUNTER 2018-06-14 10:33 | Emergency (ER) | END 2018-06-14 12:16 | disposition home or self-care (01) ==

== ENCOUNTER 2019-04-15 19:35 | Emergency (ER) | payer SELFPAY ==
[~2019-04-15] VITALS: Ht 152.4 cm; Wt 1.6 kg
[2019-04-15 19:47] VITALS: BP 154/97; PULSE 94; RESP 18; Ht 152.4 cm; Wt 1.6 kg
== END 2019-04-15 20:28 | disposition left against medical advice (07) ==
LOC: E/R 19:35
DX: Z53.21 Procedure and treatment not carried out due to patient leaving prior to being seen by health care provider (principal)

== ENCOUNTER 2019-05-07 18:51 | Emergency (ER) | payer SELFPAY ==
[~2019-05-07] VITALS: Wt 61.6 kg
[2019-05-07 19:16] VITALS: BP 142/99; PULSE 99; RESP 18
== END 2019-05-07 21:44 | disposition left against medical advice (07) ==
LOC: E/R 18:51
DX: Z53.21 Procedure and treatment not carried out due to patient leaving prior to being seen by health care provider (principal)
CPT/HCPCS: 93005

== ENCOUNTER 2019-05-09 10:14 | Emergency (ER) | payer OTHER ==
[~2019-05-09] VITALS: Ht 165.1 cm; Wt 68.2 kg
[2019-05-09 10:18] VITALS: Ht 165.1 cm; Wt 68.2 kg
--- NOTE | 2019-05-09 12:28 | ERD ---
ER Documentation Chief Complaint Chief Complaint etoh, no trauma, found sitting on a bench HPI This is a 63-year-old male with a past medical history of gastritis, alcohol abuse who is presenting for alcohol intoxication. The patient was sitting on a bench outside. He does admit to drinking heavily. The patient felt generally unwell and bystanders called an ambulance. The patient does endorse mild chronic aching burning epigastric pain with nausea. The patient is hungry and would like a place to sleep. He does not have any other complaints. He does not endorse any alleviating or exacerbating factors. There is no trauma or injury. The patient denies feeling sick recently. The patient denies fever or chills. The patient has had no headache or vision changes. The patient does not endorse neck or back pain. The patient denies lightheadedness or dizziness. The patient has had no chest pain or trouble breathing. The patient denies nausea or vomiting. The patient denies abdominal pain. The patient denies changes to bowel movements or urination. The patient has had no focal deficits. The patient has had no weakness or numbness or tingling to the face or extremities. ROS All systems reviewed and are negative except as per history of present illness. Medications Home Meds No Active Prescriptions or Reported Meds Allergies Allergies: Coded Allergies: Penicillins (Verified Allergy, Mild, 05/09/19) PMhx/Soc History of Surgery: Yes (testicular hernia repair) Anesthesia Reaction: No Hx Neurological Disorder: No Hx Respiratory Disorders: No Hx Cardiac Disorders: No Hx Psychiatric Problems: Yes (DEPRESSION, ETOH ABUSE) Hx Miscellaneous Medical Probl: Yes (chronic back pain, prostatitis dx'd 2 yrs ago- no f/u) Hx Alcohol Use: Yes (DAILY) Hx Substance Use: No (DENIES) Hx Tobacco Use: No (DENIES) Smoking Status: Never smoker FmHx Family History: No diabetes Physical Exam Vitals Vital Signs Date Temp Pulse Resp B/P (MAP) Pulse Ox O2 O2 Flow FiO2 Time Delivery Rate 05/09/19 87 16 136/96 94 Room Air 12:12 (109) 05/09/19 97.6 97 18 149/97 97 10:18 (114) 05/09/19 97.6 95 18 149/97 96 10:17 (114) Physical Exam Const: No acute distress Head: Atraumatic Eyes: Normal Conjunctiva ENT: Normal External Ears, Nose and Mouth. Neck: Full range of motion. No meningismus. Resp: Clear to auscultation bilaterally Cardio: Regular rate and rhythm, no murmurs Abd: Soft, non tender, non distended. Normal bowel sounds Skin: No petechiae or rashes Back: No midline or flank tenderness Ext: No cyanosis, or edema Neur: Awake and alert Psych: Normal Mood and Affect Results 24 hrs Laboratory Tests Test 05/09/19 11:00 Ethyl Alcohol Level 405.0 mg/dl Procedures/[facility] MDM The patient's presentation warrants further investigation. Previous medical records, if available, were reviewed. LABS The patient's laboratory testing was obtained and reviewed. No emergent treatment was required unless described below. Ethanol: 405 EKG EKG read by me: Rate/Rhythm: Regular rate and rhythm at a rate of 94 bpm Intervals: Normal [place]: Normal Impression: Nonspecific repolarization changes without evidence of ischemia or arrhythmia TREATMENT/DISPOSITION The patient presents for alcohol intoxication. The patient reports gastritis type pains. He was treated with Zofran, Pepcid and a GI cocktail with improvement. There is no evidence of viscus perforation or peritonitis. The patient has no other complaints. The patient's physical exam is otherwise reas suring. There is no trauma or injury. I do not feel that advanced imaging is warranted at this time. The patient's vital signs are stable. I do not see any evidence of withdrawal. I have low suspicion for any emergent metabolic or electrolyte abnormalities. I do not suspect a cardiopulmonary process. The patient has no focal deficits. I do not suspect cerebral ischemia or i ntracranial hemorrhage. The patient requires observation until clinical sobriety. The patient will be signed out to Dr. Gómez at 3:30 PM on May 09, 2019. OBSERVATION NOTE Time: At least 4 hours Family Hx: No Hypertension Evaluation: Multiple exams showed improving symptoms and no evidence of compensation DISCHARGE I anticipate that the patient will be stable for discharge. The patient will be instructed to follow-up with a primary care physician in 1-3 days. The patient will be given strict precautions with which to return to the emergency department. Prescriptions: None The patient's blood pressure was elevated at greater than 120/80 while in the emergency department. The patient was otherwise stable with no evidence of hypertensive urgency or emergency. The patient does not require admission for blood pressure control. I have discussed with the patient the risks of hy pertension. I have instructed the patient to return to the ER for any new or worsening symptoms including chest pain, shortness of breath, headache, blurred vision, confusion, nausea, vomiting or LOC. I have advised the patient to follow up with the primary care physician for outpatient monitoring and treatment for hypertension in 1-3 days. Disclaimer: Inadvertent spelling and grammatical errors are likely due to EHR/dictation software use and do not reflect on the overall quality of patient care. Note that the electronic time recorded on this note does not necessarily reflect the actual time of the patient encounter. Departure Diagnosis: Primary Impression: Alcohol intoxication Complication of substance-induced condition: uncomplicated Qualified Codes: F10.920 - Alcohol use, unspecified with intoxication, uncomplicated Additional Impressions: Gastritis Gastritis type: alcoholic Chronicity: chronic Gastritis bleeding: without bleeding Qualified Codes: K29.20 - Alcoholic gastritis without bleeding Nausea Fatigue Fatigue type: chronic, unspecified Qualified Codes: R53.82 - Chronic fatigue, unspecified Condition: Stable Patient Instructions: Alcohol Intoxication, Gastritis Vs. Ulcer Additional Instructions: Thank you for for coming to [facility] for your care today. Please ask your nurse or provider if you have questions about your care today and do not leave until all your questions have been answered. Please use any medications given as directed and follow-up with your doctor (or the doctor you were referred to) in the next 1-3 days. If you do not have a primary care doctor you may follow up at the [facility] or [facility] (listed below). You may also use motrin and tylenol as needed for fever and/or pain unless instructed otherwise by your provider or nurse. Indications for more urgent follow-up have been discussed, but you may return to the Emergency Department at ANY time for any worrisome or worsening symptoms. If you have abdominal pain, please know that no test or exam you received is perfect and you should follow up within 8 hours for continued pain. If you had any imaging studies today, such as an X-Ray or CT Scan, these studies will be reviewed later by a radiologist. You will be called if there are important findings that were not identified today, so make sure the contact information you provided at registration is correct. If you received any narcotic pain control medicine today, such as Vicodin, Morphine or Dilaudid, your coordination and judgment may be affected for a number of hours. Please do not drive or operate heavy machinery, and you may want someone to assist you at home. If you were given a prescription for narcotic medication, be aware that it is very addictive- use sparingly and only if necessary. PLEASE SEEK FURTHER EVALUATION AND MANAGEMENT AT YOUR DOCTORS OFFICE WITHIN THE NEXT 1-3 DAYS. IT IS YOUR RESPONSIBILITY TO MAKE AN APPOINTMENT FOR FOLOW-UP CARE. IF YOU HAVE A PRIMARY DOCTOR, PLEASE CALL THEIR OFFICE TO SCHEDULE AN APPOINTMENT FOR FOLLOW UP. IF YOU DO NOT HAVE A PRIMARY DOCTOR YOU CAN CALL OUR PHYSICIAN REFERRAL HOTLINE AT IF YOU CAN NOT AFFORD TO SEE A PHYSICIAN YOU CAN CHOSE FROM THE FOLLOWING [facility]: [facility] [address] [facility] [address] [facility] [address] [facility] [address] [facility] [address] [facility] [facility]. [address] MADHAVI FELIX MD May 09, 2019 12:28
[2019-05-09] MEDS ORDERED: ONDANSETRON (ODT) 4 MG TAB ODT STA (15:25)
[2019-05-09] MEDS ORDERED: LIDOCAINE/MYLANTA 40 ML BTL PO ONE (15:30)
[2019-05-09] MEDS ORDERED: FAMOTIDINE 20 MG TAB PO ONE (15:30)
[2019-05-09 16:03] VITALS: BP 154/103; PULSE 98; RESP 16
== END 2019-05-09 18:00 | disposition home or self-care (01) ==
LOC: E/R 10:14
DX: F10.120 Alcohol abuse with intoxication, uncomplicated (principal); K29.20 Alcoholic gastritis without bleeding; R53.82 Chronic fatigue, unspecified
CPT/HCPCS: 80307; 82962; 93005; Z7502; Z7610

== ENCOUNTER 2019-07-15 18:51 | Emergency (ER) | payer OTHER ==
[~2019-07-15] VITALS: Ht 149.9 cm; Wt 53.0 kg
[~2019-07-15 18:51] MED LIST changes: -FAMO-96 PO; +LISI40TA3 ORAL; +SERT-165 ORAL
[2019-07-15 18:56] VITALS: BP 147/99; PULSE 109; RESP 18; Ht 149.9 cm; Wt 53.0 kg
== END 2019-07-15 19:20 | disposition home or self-care (01) ==
LOC: E/R 18:51
DX: F10.920 Alcohol use, unspecified with intoxication, uncomplicated (principal)
CPT/HCPCS: 99282